=== PATIENT | female | born 1980 | race Caucasian/White ===

== ENCOUNTER 2017-03-16 07:34 | Outpatient (CLI) | payer OTHER | END 2017-03-16 09:41 | disposition home or self-care (01) | LOC: NST 07:34 | DX: Z34.03 Encounter for supervision of normal first pregnancy, third trimester (principal) ==

== ENCOUNTER 2017-03-25 08:23 | Inpatient (IN) | payer OTHER ==
[~2017-03-25] VITALS: Ht 147.3 cm; Wt 67.6 kg
[2017-03-25] MEDS ORDERED: PRENATAL 19 TA1 EAC1 PO (10:20)
[2017-03-25] MEDS ORDERED: IRON 100 PLUS1 EACH PO (10:23)
[2017-03-25] MEDS ORDERED: COLACE100 MG PO (10:23)
[2017-03-27] MEDS ORDERED: ACETAMINOPHEN500 M1 PO (09:12)
[2017-03-27] MEDS ORDERED: DOCUSATE SODIU100 MG PO (09:12)
== END 2017-03-27 11:39 | DRG 775 ==
LOC: LDR 08:23 → SURG-SUITE 19:24
PROC: 10E0XZZ Delivery of Products of Conception, External Approach (ICD-10-PCS; principal; 2017-03-25)
PROC: 4A1HXCZ Monitoring of Products of Conception, Cardiac Rate, External Approach (ICD-10-PCS; 2017-03-25)
PROC: 0W8NXZZ Division of Female Perineum, External Approach (ICD-10-PCS; 2017-03-25)
PROC: 4A033R1 Measurement of Arterial Saturation, Peripheral, Percutaneous Approach (ICD-10-PCS; 2017-03-25)
DX: O99.820 Streptococcus B carrier state complicating pregnancy (principal); Z37.0 Single live birth; Z3A.38 38 weeks gestation of pregnancy